=== PATIENT | female | born 1945 | race Caucasian/White ===

== ENCOUNTER → 2018-12-10 | Outpatient (CLI) | payer MEDICARE ==
[~2018-12-10] MED LIST: ALBUTEROL0.09 MG/A1 IH; ALBUTEROL0.83 MG/ML IH; CLONAZEPAM PO; ESCITALOPRAM PO; LEVOTHYROXINE PO; PREDNISONE20 MG PO; TRAMADOL PO; ZOCOR PO
== END ==
LOC: MC.RAD 11:54
DX: T85.43XA Leakage of breast prosthesis and implant, initial encounter (principal); R59.0 Localized enlarged lymph nodes; L92.3 Foreign body granuloma of the skin and subcutaneous tissue; Z85.3 Personal history of malignant neoplasm of breast

== ENCOUNTER 2019-09-22 12:17 | Inpatient (IN) | payer MEDICARE ==
[~2019-09-22] VITALS: Ht 165.1 cm; Wt 46.8 kg
[2019-09-22] VITALS (15 sets, daily range): BP systolic 110–158; BP diastolic 48–96; PULSE 87–114; TEMP 98.1–99.6
--- NOTE | 2019-09-22 13:50 | NUR ---
SEE MERGE FOR MEDICATION ADMINISTRATION TIMES AND INTRA AND POST SEDATION ASSESSMENTS.
--- NOTE | 2019-09-22 14:46 | NUR ---
NURSE INSTRUCTED THAT PATIENT IS NOT COOPERATING WITH TR BAND INSTRUCTIONS. PT DID NOT REMEMBER THE HEART CATH PROCEDURE AND CONTINUES TO ATTEMPT TO GET OUT OF BED. NURSE INFORMED THAT PT WILL NEED TO BE MONITORED CLOSELY.
[2019-09-22] MEDS ORDERED: PROAIR HFA0.09 MG/AC IH (15:16)
[2019-09-22] MEDS ORDERED: ALBUTEROL0.83 MG/ML IH (15:16)
[2019-09-22] MEDS ORDERED: XANAX 0.5MG0.5 MG PO (15:16)
[2019-09-22] MEDS ORDERED: GINKGO3 PO (15:16)
[2019-09-22] MEDS ORDERED: REQUIP2 MG PO (15:17)
[2019-09-22] MEDS ORDERED: LEVOXYL0.125 MG PO (15:17)
[2019-09-22] MEDS ORDERED: ZOCOR 20MG20 MG PO (15:17)
[2019-09-22] MEDS ORDERED: DESYREL 50MG50 MG PO (15:17)
--- NOTE | 2019-09-22 18:07 | NUR ---
Patient arrived to floor via EMS at approximately 1230. Patient is alert and oriented, answers questions appropriately. Patient left floor for cardiac cath at approximately 1300, arrived back to floor at 1430. Patient is sleepy but rouses easily, is alert and oriented while awake. Post cath VS checks initated. TR band was incrimentally loosened and removed at 1815, hemostasis intact. Patient denies pain or needs at this time, call light within reach.
--- NOTE | 2019-09-22 20:00 | NUR ---
At time of assessment, patient is resting in bed watching TV. She states she has pulled out her L upper arm IV while trying to use the restroom. She is alert and oriented but seems forgetful. Her gait is steady when walking to the bathroom but SBA is necessary as she does sway a bit. She is not on oxygen and is satting 96%. She does not complain of any pain and no edema is present. Will continue to monitor.
[2019-09-23 00:05] VITALS: BP 119/63; PULSE 87; TEMP 98.6
[2019-09-23 03:56] VITALS: BP 136/60; PULSE 91; TEMP 98.7
[2019-09-23 04:00] VITALS: BP 136/60; PULSE 91; TEMP 98.7
--- NOTE | 2019-09-23 05:05 | NUR ---
Patient requested something to help her sleep. 0.5 mg Xanax administered and patient has been able to sleep after this. She has not had any complaints of pain tonight. She has remained alert and oriented throughout the night and calls out appropriately.
[2019-09-23 07:22] VITALS: BP 125/61; PULSE 102; TEMP 99.5
[2019-09-23 08:00] LABS: BASO # 0.1 (0.0-0.2); BASO % 0.8 % (0.0-2.0); EOS % 0.3 % (0-4.0); GRAN # 6.7 (1.4-6.5); GRAN % 62.8 % (42.2-75.2); HEMATOCRIT 48.1 % (37.0-47.0); HEMOGLOBIN 16.3 g/dl (12.5-16.0); LYMPH # 2.6 (1.2-3.4); MEAN CELL VOLUME 89 fl (80.0-100.0); MEAN CORPUSCULAR HEMOGLOBIN 30 pg (27.0-31.0); MEAN CORPUSCULAR HGB CONC 34 g/dl (33.0-37.0); MEAN PLATELET VOLUME 12.6 fl (7.4-10.4); MONO # 1.3 (0.1-0.6); MONO % 11.7 % (1.7-9.3); PLATELET COUNT 166 K/mm3 (130-400); REDCELL DISTRIBUTION WIDTH-CV 13.9 % (11.5-14.5)
--- NOTE | 2019-09-23 08:02 | NUR ---
PT AOX4. STATES DR SAID PLAN IS TO DC. DENIES PAIN. NSR ON TELE. DENIES N/V, CP, FRANKLIN, VERTIGO. NO NEW CONCERNS
[2019-09-23 08:10] LABS: BILIRUBIN,TOTAL 1.4 mg/dL (0.0-1.0); CALCIUM 9.5 mg/dL (8.4-10.2); CREATININE, serum 0.71 (0.52-1.25); POTASSIUM 3.5 mmol/L (3.4-5.0); TOTAL PROTEIN 6.9 gm/dL (6.4-8.2)
[2019-09-23 08:54] LABS: PHENYTOIN (DILANTIN) 12.1 ug/mL (10.0-20.0)
[2019-09-23 11:54] VITALS: BP 115/58; PULSE 83; TEMP 97.7
--- NOTE | 2019-09-23 12:06 | NUR ---
PT REPORTS EXTREME CLAUSTROPHOBIA AND WOULD NOT ATTEMPT TO GET INTO MRI MACHINE DESPITE EARLIER ADMIN OF AVAILABLE PRN XANAX FOR ANXIETY. JIMMY JEFFERSON NOTIFIED. EEG CALLED AND UNABLE TO PERFORM TEST TODAY.
--- NOTE | 2019-09-23 13:07 | NUR ---
Tongue [employer]itcher met with patient to discuss discharge planning. Patient lives in [place] with her son, Santana (ph#[phone]). Patient goes to [facility] for primary care and for medications. Patient does not use any DME and reports independence with [facility]. Patient does not have DPOA-HC. Patient reports she has three children. Santana, Tess, and Evin. Patient states she is . Patient plans to return home upon discharge with her friend Jennifer (ph#[phone]) providing transportation. No additional needs at this time.
[2019-09-23] MEDS ORDERED: ASPIRIN 81M81 MG/TA2 PO (14:19)
[2019-09-23] MEDS ORDERED: LOPRESSOR 225 MG/TAB PO (14:19)
[2019-09-23] MEDS ORDERED: PHENYTEK200 MG PO (14:19)
--- NOTE | 2019-09-23 16:56 | NUR ---
pt discharged to home accompanied by friend @ [id number]. no new concerns
== END 2019-09-23 16:10 | disposition home or self-care (01) | DRG 281 ==
LOC: MEDICAL 12:17
PROVIDERS: Physician Assistant; ADMIT Hospitalist
PROC: 4A023N7 Measurement of Cardiac Sampling and Pressure, Left Heart, Percutaneous Approach (ICD-10-PCS; principal; 2019-09-22)
PROC: B2111ZZ Fluoroscopy of Multiple Coronary Arteries using Low Osmolar Contrast (ICD-10-PCS; 2019-09-22)
DX: I21.4 Non-ST elevation (NSTEMI) myocardial infarction (principal); G93.40 Encephalopathy, unspecified; I10 Essential (primary) hypertension; J44.9 Chronic obstructive pulmonary disease, unspecified; E78.5 Hyperlipidemia, unspecified; E03.9 Hypothyroidism, unspecified; G25.81 Restless legs syndrome; G40.909 Epilepsy, unspecified, not intractable, without status epilepticus; F41.9 Anxiety disorder, unspecified; I25.10 Atherosclerotic heart disease of native coronary artery without angina pectoris; F32.9 Major depressive disorder, single episode, unspecified; F17.210 Nicotine dependence, cigarettes, uncomplicated; E87.6 Hypokalemia; Z85.3 Personal history of malignant neoplasm of breast; Z90.89 Acquired absence of other organs; Z86.73 Personal history of transient ischemic attack (TIA), and cerebral infarction without residual deficits
CPT/HCPCS: 99222-AI; 99239; J1644; J1650; J2250; Q9967